=== PATIENT | female | born 1930 | race Caucasian/White ===

== ENCOUNTER 2020-09-24 03:44 | Emergency (ER) | payer OTHER ==
--- OUTSIDE RECORDS SUMMARY | 2020-09-24 03:47 | XMS REPORT | Continuity of Care Document ---
:1930 Author Organization [facility] t Address [address] [place] [address] Care Team Providers Name Role Phone Ivy Wallace MD Primary Care Physician Alta NOLAND, [place] Attending Clinician Unavailable Morris ROSAS Attending Clinician Beatriz ROSAS Attending Clinician Payers Payer Name Policy Type Policy Effective Date Expiration Date Sour ce Number UHC MEDICAREUHC [id number] 2020 [facility] 00:00:00 Hospital [id number] 2020-Present Problems Condition Condition Condition Status Onset Resolution Last Treating Co mments Source Name Details Category Date Date Treatment Clinician Date Palpitatio Palpitatio Disease Active M ethodi ns ns 8-10 st 00:00: Hospita 00 l Dizziness Dizziness Disease Active Met hodi 8-10 st 00:00: Hospita 00 l 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 7-16 st thy thy 00:00: Hospita 00 l Allergies, Adverse Reactions, Alerts Allergy Allergy Status Severity Reaction(s) Onset Inactive Treating Comm ents Source Name Type Date Date Clinician Soy Propensi Active Swelling Method i ty to 07-03 st adverse 00:00: Hospita reaction 00 l s to drug Wheat Propensi Active Swelling Method i ty to 07-03 st adverse 00:00: Hospita reaction 00 l s to drug [place] Propensi Active Other (See Meth zeynep ty to Comments) 07-03 adverse 00:00: Hospita reaction 00 l s to drug Mold Propensi Active Hives 2012-02 Methodi Extracts ty to 03-03 adverse 00:00: Hospita reaction 00 l s to drug Penicill Propensi Active Swelling 2012-02 Meth zeynep ins ty to 03-03 adverse 00:00: Hospita reaction 00 l s to drug Family History Family Member Diagnosis Comments Start Date Stop Date Source [facility] mother [facility] Social History Social Habit Start Date Stop Date Quantity Comments Source History SDOH [facility] Std Drinks Hospit al History SDKS [facility] Exposure to Not sure [facility] SARS-CoV-2 (event) Hospit al Tobacco use and 2020-09-20 2020-09-20 Never used [facility] exposure 00:00:00 00:00:00 Hospital Alcohol intake 2020-09-20 2020-09-20 Lifetime [facility] 00:00:00 00:00:00 non-drinker Hospital (finding) History SDKS 2018-11-06 2018-11-06 1 [facility] Alcohol Frequency 00:00:00 00:00:00 Hospita l Sex Ass[birth year] At [birth year] [facility] 00:[facility]:00 Hospital Smoking Status Start Date Stop Date Source Never smoker [facility] Medications Ordered Filled Start Stop Current Ordering Indication Dosage Frequency Signature Comments Components Source Medication Medication Date Date Medication? Clinician (SIG) Name Name aspirin-eb 2020- 81mg Take 81 mg Methodi cium 8-10 08-[address] carbonate 19:51: 00:00 Hospita 81 mg-300 28 :00 l mg calcium(777 mg) tablet aspirin Yes 81mg QD Take 81 mg Meth zeynep (ECOTRIN) 8-[address] 81 MG 19:51: daily. Hospita enteric 25 l coated tablet melatonin 3 Yes 3mg QD Take 3 mg M ethodi mg tablet 8-[address] 19:50: nightly as Hospita 59 needed. l cholecalcif Yes Take by Met hodi tha, 8-[address] vitamin D3, 19:50: Hospit a 5,000 unit 24 l tablet multivitami 2021-0 Yes 1{tbl} QD Take 1 Me thodi n 8-10 tablet by (THERAGRAN) 19:50: mouth Hospi ta tablet 24 daily. l folic 2018- Yes 1{capsu QD Take 1 Methodi acid-vit 9-26 le} capsule by st B6-vit B12 00:00: mouth Hospit a 2.5-25-1 mg 00 daily. l tablet ARMOUR Yes TAKE 1 Methodi THYROID 60 6-10 TABLET BY mg tablet 00:00: ORAL ROUTE Ho spita 00 EVERY DAY l BEFORE BREAKFAST Vital Signs Vital Name Observation Time Observation Value Comments Source Systolic blood 2020-09-20 19:47:00 142 mm[Hg] [facility] pressure Diastolic blood 2020-09-20 19:47:00 58 mm[Hg] [facility] pressure Heart rate 2020-09-20 19:47:00 50 /min [facility] Body height 2020-09-20 19:47:00 152.4 cm [facility] Body weight 2020-09-20 19:47:00 66.679 kg [facility] BMI 2020-09-20 19:47:00 28.71 kg/m2 [facility] Oxygen saturation in 2020-09-20 19:47:00 96 /min [facility] Arterial blood by Pulse oximetry Procedures Procedure Date / Time Performed Performing Clinician Sourc e THYROID STIMULATING 2020-09-20 21:10:00 [facility] H[facility] HC COMPLETE BLD COUNT 2020-09-20 21:10:00 [facility] W/AUTO DIFF BASIC METABOLIC PANEL 2020-09-20 21:10:00 [facility] ESTIMATED GFR 2020-09-20 21:10:00 Gaby Caceres [facility] Plan of Care Planned Activity Planned Date Details Comments Source Future Scheduled Test COVID-19 VACCINE (1[facility] [code = COVID-19 VACCINE (1)] Future Scheduled Test SHINGLES VACCINES (#1) [facility] [code = SHINGLES VACCINES (#1)] Future Scheduled Test 65+ PNEUMOCOCCAL [facility] VACCINE (1 of 1 - PPSV23) [code = 65+ PNEUMOCOCCAL VACCINE (1 of 1 - PPSV23)] Future Scheduled Test INFLUENZA VACCINE [code [facility] = INFLUENZA VACCINE] Encounters Start End Encounter Admission Attending Care Care Encounter Source Date/Time Date/Time Type Type Clinicians Facility Department ID 2020-09-23 2020-09-23 Telephone Edwin [id number] [id number] [facility] 00:00:00 00:00:[address] Magali to[address] [place] 3.430.2.7 Hospit a .3.181084 l .8 2020-09-20 2020-09-20 Office Adrogue, 1.2.840.1 [id number] [facility] 14:27:11 15:51:06 Visit Gaby 75181.1.[address] 3.430.2.7 Hospit a .3.278033 l .8 2020-09-20 2020-09-20 Travel 1.2.840.1 [id number] [facility] 00:00:00 00:00:[address] 3.430.2.7 0.2.7.3.698 Ho spita .3.126056 084.8 l .8 2020-09-20 2020-09-20 Outpatient ADROGUE, [facility] [id number] 00:00:00 00:00:[address] 2020-09-20 2020-09-20 Outpatient ADROGUE, [facility] [id number] [place] 00:00:00 00:00:[address] GAB[address] 2020-05-04 2020-05-04 Travel 1.2.840.1 [id number] Methodi 00:00:00 00:00:[address] 3.430.2.7 0.2.7.3.698 Ho spita .3.180778 084.8 l .8 2020-04-21 2020-04-21 Refill [facility] 1.2.840.1 [id number] Method[facility] 00:00:00 00:00:[address] 3.430.2.7 Hospit a .3.786447 l .8 Results This patient has no known results.
[2020-09-24 04:34] LABS: Absolute Lymphocytes (CBC) 2.9 K/uL (0.7-4.9); Basophils % 0.7 % (0-1.3); Hematocrit 36.3 % (36.0-45.0); Lymphocytes % 42.4 % (15.3-44.8); MPV 8.7 fL (7.6-11.3); RBC Red Blood Cell Count 3.71 M/uL (3.86-4.86)
[2020-09-24 04:35] LABS: Protime INR 0.99
[2020-09-24 04:51] LABS: ALT/SGPT 18 U/L (12-78); AST/SGOT 12 U/L (15-37); Albumin 3.8 g/dL (3.4-5.0); Alkaline Phosphatase 50 U/L (45-117); BUN Blood Urea Nitrogen 19 mg/dL (7-18); Bicarbonate 29 mmol/L (21-32); Bilirubin Direct 0.2 mg/dL (0-0.2); Bilirubin Total 0.4 mg/dL (0.2-1.0); Glucose Level 93 mg/dL (74-106); Magnesium 2.6 mg/dL (1.8-2.4); NT PRO-BNP 621 pg/mL (<450); Protein, Total 7.2 g/dL (6.4-8.2); Sodium Level 142 mmol/L (136-145); Troponin (Emerg Dept Use Only) < 0.02 ng/mL (0.0-0.045)
--- NOTE | 2020-09-24 07:26 | EDPHYS ---
Physician Documentation [facility] Name: Lala Ramos Age: 89 yrs Sex: Female : 1930 Arrival Date: 09/24/2020 Time: 03:47 Bed Waiting Private MD: JAMES Physician Dimitrios Bowden HPI: 09/24 06:36 This 89 yrs old Female presents to ER via Wheelchair with complaints of pm1 Palpitations. 06:36 The patient presents with a history of irregular heart beat. Context: The symptoms pm1 occur at rest. Onset: The symptoms/episode began/occurred this morning. Duration: The patient or guardian reports a single episode, that is now resolved. Modifying factors: The symptoms are aggravated by nothing. The symptoms are alleviated by nothing. Associated signs and symptoms: The patient has no apparent associated signs or symptoms. Severity of symptoms: in the emergency department the symptoms have resolved Pain is currently a 0 / 10. The patient has been recently seen by a physician: Patient was seen by marketing professor Dr. Lcuia on Saturday and was diagnosed with atrial fibrillation, and was prescribed Eliquis. Patient reports side effect of dizziness with Eliquis. She contacted her doctor and informed her and she is no longer willing to take the Eliquis due to the side effects. So instead of Eliquis the patient took aspirin on . Patient presents to the ER with complaints of palpitation that started today. She took 2 81 mg aspirins and she is looking for a replacement medication of the eliquis. Patient without any complaints of chest pain or shortness of breath. The patient talked with her marketing professor on to inform her of her decision to stop taking the Eliquis due to the side effects and is taking aspirin instead. Historical: - Allergies: 04:01 Eliquis; em 04:01 EGG/POULTRY; em 04:01 PENICILLINS; em 04:01 CORN CONTAINING PRODUCTS; em - PMHx: 04:01 Atrial fibrillation; Hypothyroidism; em - PSHx: 04:01 Tonsillectomy; Appendectomy; em - Immunization history:: Adult Immunizations up to date, Client reports having NOT received the Covid vaccine. - Social history:: Smoking status: Patient denies any tobacco usage or history of. ROS: 06:36 Constitutional: Negative for fever, chills, and weight loss. pm1 06:36 Respiratory: Negative for shortness of breath, cough, wheezing, and pleuritic chest pain, Abdomen/GI: Negative for abdominal pain, nausea, vomiting, diarrhea, and constipation, Back: Negative for injury and pain, MS/Extremity: Negative for injury and deformity, Skin: Negative for injury, rash, and discoloration, Neuro: Negative for headache, weakness, numbness, tingling, and seizure. 06:36 Cardiovascular: Positive for palpitations, Negative for chest pain. 06:36 All other systems are negative. Exam: 06:36 Constitutional: This is a well developed, well nourished patient who is awake, alert, pm1 and in no acute distress. Head/Face: Normocephalic, atraumatic. 06:36 Skin: Warm, dry with normal turgor. Normal color with no rashes, no lesions, and no evidence of cellulitis. MS/ Extremity: Pulses equal, no cyanosis. Neurovascular intact. Full, normal range of motion. 06:36 Eyes: Exam is negative for acute changes, Extraocular movements: no acute changes, Conjunctiva: normal, no injection, Sclera: no acute changes, icterus, is not appreciated. 06:36 ENT: Mouth: no acute changes, Lips: normal, Oral mucosa: normal, pink and intact, moist. 06:36 Chest/axilla: Inspection: normal, Palpation: no acute changes. 06:36 Cardiovascular: Rate: normal, Rhythm: irregular, Pulses: no pulse deficits are appreciated, Heart sounds: normal, normal S1and S2. 06:36 Respiratory: Exam negative for acute changes, respiratory distress, shortness of breath, Breath sounds: are clear throughout. 06:36 Neuro: Exam negative for acute changes, Orientation: is normal, Mentation: is normal, Motor: is normal, moves all fours, Patient was evaluated in a wheelchair outside ER #4 because she scared to go into an ER room because she is concerned about exposure to Covid patients. Vital Signs: 03:57 BP 106 / 80; Pulse 97; Resp 20; Temp 98.1(O); Pulse Ox 97% on R/A; Weight 66.68 kg; em Height 5 ft. 1 in. (154.94 cm); Pain 0/10; 03:57 Body Mass Index 27.78 (66.68 kg, 154.94 cm) em MDM: 06:17 Patient medically screened. pm1 06:50 ED course: Called the cardiology group for Dr. Angeles Lucia. She was not automation lead and pm1 her covering physician called back. He said that he is not familiar with the patient, and will inform her on Saturday that the patient presented to the ER. I discussed my interaction with the on-call marketing professor with Dr. Bowden. Patient should be safe for discharge to follow-up with her marketing professor for further anticoagulation management. 06:51 Data interpreted: Pulse oximetry: on room air is 97 %. Interpretation: normal. pm1 07:19 ED course: Patient is concerned about exposure to Covid in the ER waiting room and pm1 would like to go home now. Inform the patient that I am currently pending TSH level to see if it has any effect on her current presentation of palpitations. She does not want to wait for the results and would like to be called at home. I informed patient about my discussion with the on-call marketing professor for Dr. Angeles Lucia. The patient is currently taking aspirin and has stopped taking Eliquis. According to the patient, Dr. Lucia is aware of her medication change. Recommended follow-up with Dr. Lucia for management of her anticoagulation. 10:46 ED course: Called the patient with the official radiology report. Discussed the pm1 recommendation by the radiologist for CT scan of her chest for further evaluation of the enlarged mediastinum and also discussed his impression that this might be her baseline enlarged mediastinum, mediastinal mass, or lymphadenopathy. Patient does not want a CT scan in the ER now. Just like this morning she is concerned about possible exposure to Covid in the ER. This morning she did not want to be seen in the ER room next to Covid patients and felt more comfortable staying outside in the waiting room for results. Patient wants to lemon picker a copy of her x-ray report, and wants to follow-up with her marketing professor for the recommended CT scan. 16:00 Data reviewed: vital signs. pm1 09/24 04:18 Order name: Basic Metabolic Panel; Complete Time: 06:14 em 09/24 04:18 Order name: CBC with Diff; Complete Time: 06:14 em 09/24 04:18 Order name: LFT's; Complete Time: 06:14 em 09/24 04:18 Order name: Magnesium; Complete Time: 06:14 em 09/24 04:18 Order name: NT PRO-BNP; Complete Time: 06:14 em 09/24 04:18 Order name: PT-INR; Complete Time: 06:14 em 09/24 04:18 Order name: Troponin (emerg Dept Use Only); Complete Time: 06:14 em 09/24 04:18 Order name: XRAY Chest (1 view); Complete Time: 10:37 em 09/24 04:18 Order name: EKG; Complete Time: 04:18 em 09/24 04:18 Order name: Cardiac monitoring; Complete Time: 04:18 em 09/24 04:18 Order name: EKG - Nurse/Tech; Complete Time: 04:18 em 09/24 04:18 Order name: IV Saline Lock; Complete Time: 04:18 em 09/24 06:35 Order name: Add On-Lab pm1 09/24 06:47 Order name: Thyroid Stimulating Hormone; Complete Time: 08:00 EDMS 09/24 04:18 Order name: Labs collected and sent; Complete Time: 04:18 em 09/24 04:18 Order name: O2 Per Protocol; Complete Time: 04:18 em 09/24 04:18 Order name: O2 Sat Monitoring; Complete Time: 04:18 em Administered Medications: No medications were administered Disposition: 09/25 06:46 Co-signature as Attending Physician, Dimitrios Bowden MD. [email or web address] Disposition Summary: 09/24/20 07:25 Discharge Ordered Location: Home pm1 Problem: new pm1 Symptoms: have improved pm1 Condition: Stable pm1 Diagnosis - Palpitations pm1 Followup: pm1 - With: Emergency Department - When: As needed - Reason: Worsening of condition Followup: pm1 - With: Private Physician - When: 2 - 3 days - Reason: Recheck today's complaints, Continuance of care, Re-evaluation by your physician Discharge Instructions: - Discharge Summary Sheet pm1 - Palpitations pm1 Forms: - Medication Reconciliation Form pm1 - Thank You Letter pm1 - Antibiotic Education pm1 - Prescription Opioid Use pm1 Signatures: Dispatcher [employer] EDRoland Estrada RN RN em Sebas Ryan, MECHANICAL INTEGRITY ENGINEER MECHANICAL INTEGRITY ENGINEER pm1 Dimitrios Bowden, MD MD [email or web address]
--- NOTE | 2020-09-24 07:26 | ER ---
Nurse's Notes [facility] Name: Lala Ramos Age: 89 yrs Sex: Female : 1930 Arrival Date: 09/24/2020 Time: 03:47 Bed Waiting Private MD: Diagnosis: Palpitations Presentation: 09/24 03:57 Chief complaint: Patient states: was having heart palpitations that stated 0130, took 2 em baby aspirins and it resolved. Coronavirus screen: Client denies travel out of the [place] in the last 14 days. Ebola Screen: Patient negative for fever greater than or equal to 101.5 degrees Fahrenheit, and additional compatible Ebola Virus Disease symptoms Patient denies exposure to infectious person. Patient denies travel to an Ebola-affected area in the 21 days before illness onset. No symptoms or risks identified at this time. Initial Sepsis Screen: Does the patient meet any 2 criteria? HR > 90 bpm. No. Patient's initial sepsis screen is negative. Does the patient have a suspected source of infection? No. Patient's initial sepsis screen is negative. Risk Assessment: Do you want to hurt yourself or someone else? Patient reports no desire to harm self or others. Onset of symptoms was September 24, 2020. 03:57 Method Of Arrival: Wheelchair em 03:57 Acuity: HUMERA 3 em Historical: - Allergies: 04:01 Eliquis; em 04:01 EGG/POULTRY; em 04:01 PENICILLINS; em 04:01 CORN CONTAINING PRODUCTS; em - PMHx: 04:01 Atrial fibrillation; Hypothyroidism; em - PSHx: 04:01 Tonsillectomy; Appendectomy; em - Immunization history:: Adult Immunizations up to date, Client reports having NOT received the Covid vaccine. - Social history:: Smoking status: Patient denies any tobacco usage or history of. Screenin:19 Abuse screen: Denies threats or abuse. Nutritional screening: No deficits noted. em Tuberculosis screening: No symptoms or risk factors identified. Fall Risk None identified. Assessment: 03:57 General: Appears in no apparent distress. comfortable, Behavior is calm, cooperative, em appropriate for age, Denies fever. Pain: Denies pain. Neuro: Level of Consciousness is awake, alert, obeys commands, Oriented to person, place, time, situation. Cardiovascular: Capillary refill < 3 seconds Patient's skin is warm and dry. Respiratory: Airway is patent Respiratory effort is even, unlabored, Respiratory pattern is regular, symmetrical. GI: Patient currently denies nausea, vomiting. Derm: Skin is intact, is fragile, is thin, Skin is pink, warm \T\ dry. Musculoskeletal: Range of motion: intact in all extremities. Vital Signs: 03:57 BP 106 / 80; Pulse 97; Resp 20; Temp 98.1(O); Pulse Ox 97% on R/A; Weight 66.68 kg; em Height 5 ft. 1 in. (154.94 cm); Pain 0/10; 03:57 Body Mass Index 27.78 (66.68 kg, 154.94 cm) em ED Course: 03:47 Patient arrived in ED. bp1 03:57 Patient has correct armband on for positive identification. em 04:01 Triage completed. em 04:01 Arm band placed on. em 04:09 EKG done, by ED staff, reviewed by Dimitrios Bowden MD. em 04:18 Initial lab(s) drawn, by id, sent to lab. Inserted saline lock: 20 gauge in right em antecubital area, using aseptic technique. Blood collected. 04:46 XRAY Chest (1 view) In Process Unspecified. EDMS 06:08 Sebas Ryan NP is PHCP. pm1 06:08 Dimitrios Bowden MD is Attending Physician. pm1 08:08 No provider procedures requiring assistance completed. IV discontinued, intact, em bleeding controlled, No redness/swelling at site. Pressure dressing applied. Administered Medications: No medications were administered Outcome: 07:25 Discharge ordered by . pm1 08:08 Discharged to home ambulatory, with family. em 08:08 Condition: stable 08:08 Discharge instructions given to patient, Instructed on discharge instructions, follow up and referral plans. Demonstrated understanding of instructions, follow-up care. 08:08 Patient left the ED. em Signatures: Dispatcher [employer] Roland Perez, RN RN em Sebas Ryan NP MANAGER OF COMPLIANCE pm1 Chelsi Chamorro bp1
[2020-09-24 08:19] VITALS: BP 106/80; TEMP 98.1; O2SAT 97
--- NOTE | 2020-09-24 09:58 | RAD REPORT ---
EXAM DESCRIPTION: RAD - Chest Single View - 09/24/2020 4:47 am CLINICAL HISTORY: CHEST PAIN COMPARISON: September 2010 TECHNIQUE: AP portable chest image was obtained 09/24/2020 4:47 am . FINDINGS: Patient is significantly rotated. Chronic interstitial lung disease is evident on the left . Hiatal hernia is suspected. Much of the right lung field is obscured due to rotation and enlarged m ediastinum. Radiopaque density in the lower chest is probably an implantable loop recorder or similar device. No recent imaging is available. The enlarged mediastinum could be vascular dilatation and cardiomegal y. Mass or lymphadenopathy cannot be excluded without further history. Acute vascular engorgement not seen. Significant pulmonary edema is not suspected. No measurable pleural effusion and no pneumothorax. No acute bony abnormality seen. No acute aortic findings suspected. Mediastinal findings were telephoned to Sebas in the emergency department 9:50 a.m.. Patient was ap parently concerned about COVID exposure and did not enter the hospital for full assessment. IMPRESSION: Chronic interstitial lung changes are evident. Much of the or right lung field is obscur ed but significant lung parenchymal disease is not suspected. Enlarged mediastinum, substantially different 2010. This could be cardiac enlargement and vascular di latation. Mediastinal mass or lymphadenopathy cannot be excluded without additional history. If the mediastinal findings cannot be explained by prior history or imaging and/or if there are ongoi ng clinician or patient concerns, CT chest imaging could be performed.
== END 2020-09-24 08:08 | disposition home or self-care (01) ==
LOC: ER 03:44
DX: R00.2 Palpitations (principal); I48.91 Unspecified atrial fibrillation; Z88.0 Allergy status to penicillin; Z88.8 Allergy status to other drugs, medicaments and biological substances; Z91.012 Allergy to eggs; Z91.018 Allergy to other foods
CPT/HCPCS: 36415; 71045; 80048; 80076; 83735; 83880; 84443; 84484; 85025; 85610; 93005; 99284